=== PATIENT | male | born 1995 | race Caucasian/White ===

== ENCOUNTER → 2016-09-07 | Outpatient (CLI) | payer BC ==
[2016-09-07 10:48] LABS: BASOPHILS % (AUTO) 1 % (0-2); EOSINOPHILS # (AUTO) 0.2 10^3uL; EOSINOPHILS % (AUTO) 4 % (0-4); LYMPHOCYTES # (AUTO) 1.8 X10^3; MEAN CORPUSCULAR HEMOGLOBIN 30.7 PG (26.0-34.0); MEAN CORPUSCULAR VOLUME 86 FL (80-100); MEAN PLATELET VOLUME 9.8 FL (6.0-9.5); MONOCYTES # (AUTO) 0.5 X10^3; MONOCYTES % (AUTO) 11 % (3-11); NEUTROPHILS # (AUTO) 2.2 X10^3; NEUTROPHILS % (AUTO) 46 % (51-67); PLATELET COUNT 273 10^3uL (150-450); WHITE BLOOD COUNT 4.75 10^3uL (4.0-11.0)
[2016-09-07 10:53] LABS: MEAN CORPUSCULAR HGB CONC 35.7 g/dL (31.0-37.0)
[2016-09-07 11:06] LABS: BILIRUBIN,URINE Negative (Negative); CLARITY,URINE Clear; COLOR,URINE Yellow; GLUCOSE, URINE (UA) Negative (Negative); LEUKOCYTE ESTERASE, URINE Negative (Negative); UROBILINOGEN,URINE 0.2 mg/dL (0.2-1.0)
[2016-09-07 11:13] LABS: ANION GAP 17.1 MEQ/L (3-15); CALCULATED IONIZED CALCIUM 3.8 mg/dL (3.8-4.6); TOTAL PROTEIN 8.4 g/dL (6.4-8.5)
[2016-09-07 11:24] LABS: ERYTHROCYTE SEDIMENTATION RT* 10 mm/hr (0-12)
== END ==
LOC: LAB 10:31
PROVIDERS: ATTEND Orthopaedic Surgery
DX: S83.512A Sprain of anterior cruciate ligament of left knee, initial encounter (principal); X58.XXXA Exposure to other specified factors, initial encounter
CPT/HCPCS: 36415; 80053; 81003; 85025; 85610; 85652; 85730

== ENCOUNTER 2016-11-26 08:15 | Outpatient (RCR) | payer BC ==
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
== END 2016-12-04 12:59 | disposition home or self-care (01) ==
LOC: PT 08:15
PROVIDERS: ATTEND Orthopaedic Surgery
DX: Z98.890 Other specified postprocedural states (principal)